=== PATIENT | male | born 1975 | race Two or more races ===

== ENCOUNTER 2017-02-18 20:27 | Emergency (ER) | payer OTHER ==
[~2017-02-18] VITALS: Ht 160 cm; Wt 63.0 kg
[2017-02-18 20:35] VITALS: BP 137/81
[2017-02-18 21:04] LABS: Basophils # (auto) 0 uL; Basophils % (auto) 0.2 % (0.0-2.0); CONDITION Y; Eosinophils # (auto) 0.1 uL; Eosinophils % (auto) 1.2 % (0.0-7.0); Hematocrit 48.4 % (41.0-53.0); Hemoglobin 16.1 g/dL (13.5-17.5); Lymphocytes # (auto) 1.5 uL; Lymphocytes % (auto) 16.2 % (10.0-50.0); Mean Corpuscular Hemoglobin 32.4 pg (28.0-32.0); Mean Corpuscular Hgb Conc. 33.3 g/dL (32.0-36.0); Mean Corpuscular Volume 97.2 fL (80.0-100.0); Mean Platelet Volume 8.6 fL (7.4-10.4); Monocytes # (auto) 1.1 uL; Monocytes % (auto) 12.1 % (0.0-12.0); Neutrophils # (auto) 6.5 uL; Neutrophils % (auto) 70.3 % (37.0-80.0); Platelet Count (auto) 241 10^3/uL (140-450); Red Cell Distribution Width 14.5 % (11.6-16.0); White Blood Cell 9.3 10^3/uL (4.4-10.8)
[2017-02-18 21:24] LABS: Albumin 3.6 g/dL (3.4-5.0); BUN/Creatinine Ratio 11.2; Bilirubin, Total 0.9 mg/dL (0.2-1.0); Calcium 8.4 mg/dL (8.5-10.1); Potassium 3.7 mmol/L (3.5-5.1); Total Protein 7.6 g/dL (6.4-8.2)
[2017-02-18] MEDS ORDERED: IBUPROFEN 600 MG TAB PO ONE (22:00)
[2017-02-18] MEDS ORDERED: cefTRIAXone SOD 1,000 MG VL IM ONE (22:15)
== END 2017-02-18 22:40 | disposition home or self-care (01) ==
LOC: ER 20:35
DX: L03.314 Cellulitis of groin (principal)
CPT/HCPCS: 36415; 80053; 85025; 96372; 99284; J0696

== ENCOUNTER 2023-07-22 09:36 | Emergency (ER) | payer OTHER ==
[~2023-07-22] VITALS: Ht 162.6 cm; Wt 66.0 kg
[2023-07-22 10:09] VITALS: BP 132/90; PULSE 80; RESP 16; TEMP 96.7; O2SAT 98
[2023-07-22] MEDS ORDERED: IBUPROFEN 600 MG TAB PO ONE (10:30)
[2023-07-22] MEDS ORDERED: IBUP1TAB5 PO (11:11)
== END 2023-07-22 11:11 | disposition home or self-care (01) ==
LOC: ER 09:36
DX: M26.602 Left temporomandibular joint disorder, unspecified (principal)

== ENCOUNTER 2025-06-08 09:25 | Emergency (ER) | payer OTHER ==
[~2025-06-08] VITALS: Ht 162.6 cm; Wt 70.9 kg
[~2025-06-08 09:25] MED LIST: IBUP1TAB5 PO
[2025-06-08 10:57] VITALS: BP 141/85; PULSE 81; RESP 16; TEMP 97.9; O2SAT 97
--- NOTE | 2025-06-08 10:58 | ED.PDOC ---
Eye-HPI HPI Comments 50 yr M presents for evaluation of left ear pain, ongoing for three weeks following an incident in which hair dye and water may have entered the ear. The patient reports persistent symptoms over this period, describing a sensation of pus or moisture in the ear. Over the past two days before this visit, the patient has experienced worsening symptoms with new onset hearing loss in the affected ear, particularly noticeable at night when the contralateral ear is closed. The patient describes the discomfort as "very annoying." No fevers have occurred. The patient attempted to remove wax at home but was unsuccessful. Chief Complaint: Earache Time Seen by MD: 09:44 Primary Care Provider: YOLANDA Salgado Notes: Nurses Notes, Medications, Allergies Allergies: Coded Allergies: NO KNOWN ALLERGIES (Unverified , 02/18/17) Home Meds Active Scripts Ibuprofen Micronized (Ibuprofen) 600 Mg Tab, 600 MG PO Q6HP PRN, #30 TAB Prov:HERNÁN HURLEY PAC 07/22/23 Information Source: Patient Mode of Arrival: Ambulatory Past Medical History Surgical History: Denies all surgeries Family History Family History: Unknown Social History Smoker: Non-Smoker Alcohol: Denies ETOH Use Drugs: Denies Drug Use Lives In: Home All Other Systems: Reviewed and Negative (PER HPI) Physical Exam General Appearance: No Apparent Distress, Normal HEENT: Normal ENT Inspection, Pharynx Normal, TM Abnormal (L) (No signs of mastoiditis. Cerumen impaction) Neck: Full Range of Motion, Non-Tender, Normal, Normal Inspection Respiratory: Chest Non-Tender, Lungs Clear, No Accessory Muscle Use, No Respiratory Distress, Normal Breath Sounds Cardiovascular: No Edema, No JVD, No Murmur, No Gallop, Normal Peripheral Pulses, Regular Rate/Rhythm Breast Exam: Deferred Gastrointestinal: No Organomegaly, Non Tender, No Pulsatile Mass, Normal Bowel Sounds, Soft Genitalia: Deferred Pelvic: Deferred Rectal: Deferred Extremities: No calf tenderness, Normal capillary refill, Normal inspection, Normal range of motion, Non-tender, No pedal edema Musculoskeletal : Apperance: Normal Neurologic: Alert, suspender maker II-XII nml as Tested, No Motor Deficits, Normal Affect, Normal Mood, No Sensory Deficits Cerebellar Function: Normal Reflexes: Normal Skin: Dry, Normal Color, Warm Lymphatic: No Adenopathy Was a procedure done? Was a procedure done?: No EENT DIFF Eye: Other Ear: Cerumen Impaction, Foreign Body, Otitis Externa, Barotrauma X-Ray, Labs, Meds, VS Vital Signs Date Time Temp Pulse Resp B/P (MAP) Pulse Ox O2 Delivery O2 Flow Rate FiO2 06/08/25 10:57 97.9 81 16 141/85 (103) 97 97.9 06/08/25 10:57 81 06/08/25 09:28 96.9 81 16 141/85 96.9 X-Ray, Labs, Meds, VS Comment Exam findings consistent with impacted cerumen Risk and benefits were discussed Patient tolerated procedure well On reevaluation of ear, improved ear cannal with small cerumen, visualization of TM is intact. Return precautions were discussed including fever vertigo hearing loss or purulent drainage To the ear lavage, ear canal was noted to be erythematous. Was not able to visualize the TM due to pain. However based on show decision-making patient agreed to empiric treatment therefore I will initiate Augmentin twice a day for seven days and Ciprodex twice a day for seven days strict return precautions has been initiated the patient feels comfortable being discharged at this time Patient is stable for discharge at this time. External notes reviewed. Test results and diagnostic imaging interpreted. All diagnostic findings, discharge care, education and instructions provided Follow-up with PCP in 2 to 3 days Patient verbalized understanding and agreed to treatment plan Vital signs stable, afebrile, no acute distress noted Patient ambulatory with strong steady gait Advised to return precautions for any new or worsening symptoms, return to ER immediately for re-evaluation Patient is aware that the purpose of this visit was for an acute medical emergency requiring emergent stabilization. Chronic conditions, including malignancies have not been ruled out. Patient is instructed to follow up with PCP as directed and discharge instructions for continued care and workup. If unable to arrange follow-up, patient is to return to the emergency department for reassessment. Patient (parent or legal guardian if applicable) was given verbal and written discharge instructions and acknowledges understanding. Time of 1ST Reevaluation: 10:56 Reevaluation 1ST: Improved Patient Education/Counseling: Diagnosis, Treatment Family Education/Counseling: Diagnosis, Treatment SEPSIS Sepsis Screen Date sepsis recognized/suspect: Jun 08, 2025 Time Sepsis recognized/suspect: 930 Recent Procedure: No On Antibiotic Therapy: No Respiratory Rate >20: No Heart Rate >90: No Temp<36 C (96.8 F) or >38.3 C: No SBP <90 or MAP <65 mmHG: No New Acute Mental Status Change: No Is the patient on CPAP, BIPAP,: No Vital Signs Date Time Temp Pulse Resp B/P (MAP) Pulse Ox O2 Delivery O2 Flow Rate FiO2 06/08/25 10:57 97.9 81 16 141/85 (103) 97 97.9 06/08/25 10:57 81 06/08/25 09:28 96.9 81 16 141/85 96.9 Departure 1 Departure Time of Disposition: 10:58 Impression: Primary Impression: Cerumen impaction Qualified Codes: H61.22 - Impacted cerumen, left ear Additional Impression: Otitis media Qualified Codes: H66.002 - Acute suppurative otitis media without spontaneous rupture of ear drum, left ear Disposition: HOME / SELF CARE / HOMELESS Condition: Stable e-Prescriptions Ciprofloxacin-Dexamethasone (Ciprofloxacin/Dexamethaso 0.3-0.1 %) 1 Randi Randi 4 DROP OT BID for 7 Days, #3.5 ML 0 Refills Prov: WENDY LOPEZ NP 06/08/25 Amoxicillin & Pot Clavulanate (AUGMENTIN TABLET) 875 Mg Tb 875 MG PO BID for 7 Days, #14 TAB 0 Refills Prov: WENDY LOPEZ NP 06/08/25 Discharged With: Self Critical Care Note Critical Care Time?: No Stability Stability form required: No Heart Score Heart Score: Heart Score Response (Comments) Value History N/A 0 EKG N/A 0 Age N/A 0 Risk Factors N/A 0 Troponin N/A 0 Total 0 WENDY LOPEZ NP Jun 08, 2025 10:58
[2025-06-08] MEDS ORDERED: CIPR1SUS8 OT (11:18)
[2025-06-08] MEDS ORDERED: AUG875T PO (11:18)
== END 2025-06-08 11:21 | disposition home or self-care (01) ==
LOC: ER 09:25
DX: H61.22 Impacted cerumen, left ear (principal); H66.92 Otitis media, unspecified, left ear